=== PATIENT | female | born 1995 | race American Indian/Alaskan Native ===

== ENCOUNTER 2016-06-02 15:24 | Emergency (ER) | payer MEDICAID ==
[2016-06-02 21:30] VITALS: BP 120/76
[2016-06-02] MEDS ORDERED: TYLENOL PO ONE (21:44)
--- NOTE | 2016-06-02 21:47 | Emergency Department Report ---
ED ENT HPI - General Chief complaint: Sore Throat Stated complaint: SORE THROAT/LT EARACHE Time Seen by Provider: 06/02/16 21:43 Source: patient Mode of arrival: Ambulatory Limitations: No Limitations - History of Present Illness Initial comments: 1-year-old female comes in complaining of sore throat. Patient reports that she went to see a provider yesterday at a walk-in clinic they called her today and told her that she was strep negative. He also had her left ear irrigated for cerumen impaction. Complains of ear pain. Patient has not taken any pain medicine secondary to breast feeding. Patient denies any fever or nausea no vomiting. She does have regular follow-up appointments with her PCP which is Dr. Do. complaint: sore throat - Related Data Previous Rx's Medication Instructions Recorded Last Taken Type Docusate Sodium [Colace] 100 mg PO BID PRN #60 capsule 05/11/16 Unknown Rx Ferrous Sulfate [Feosol 325 MG tab] 325 mg PO BID #60 tablet 05/11/16 Unknown Rx Acetaminophen [Tylenol] 500 mg PO Q6HR #30 tablet 06/02/16 Unknown Rx Allergies Allergy/AdvReac Type Severity Reaction Status Date / Time No Known Allergies Allergy Verified 10/21/15 06:40 ED Dental HPI - General Chief complaint: Sore Throat Stated complaint: SORE THROAT/LT EARACHE Time Seen by Provider: 06/02/16 21:43 Source: patient Mode of arrival: Ambulatory Limitations: No Limitations - Related Data Previous Rx's Medication Instructions Recorded Last Taken Type Docusate Sodium [Colace] 100 mg PO BID PRN #60 capsule 05/11/16 Unknown Rx Ferrous Sulfate [Feosol 325 MG tab] 325 mg PO BID #60 tablet 05/11/16 Unknown Rx Acetaminophen [Tylenol] 500 mg PO Q6HR #30 tablet 06/02/16 Unknown Rx Allergies Allergy/AdvReac Type Severity Reaction Status Date / Time No Known Allergies Allergy Verified 10/21/15 06:40 ED Review of Systems ROS: Stated complaint: SORE THROAT/LT EARACHE Other details as noted in HPI Constitutional: denies: chills, fever Eyes: denies: eye pain, eye discharge ENT: throat pain Respiratory: denies: cough Gastrointestinal: denies: abdominal pain, nausea, vomiting, diarrhea ED Past Medical Hx - Past Medical History Hx Hypertension: No Hx Congestive Heart Failure: No Hx Diabetes: No Hx Deep Vein Thrombosis: No Hx Renal Disease: No Hx Sickle Cell Disease: No Hx Seizures: No Hx Asthma: No Hx COPD: No Additional medical history: dehydration - Surgical History Past Surgical History?: No - Social History Smoking Status: Never Smoker Substance Use Type: None - Medications Home Medications: Home Medications Medication Instructions Recorded Confirmed Last Taken Type Docusate Sodium [Colace] 100 mg PO BID PRN #60 capsule 05/11/16 Unknown Rx Ferrous Sulfate [Feosol 325 MG tab] 325 mg PO BID #60 tablet 05/11/16 Unknown Rx Acetaminophen [Tylenol] 500 mg PO Q6HR #30 tablet 06/02/16 Unknown Rx ED Physical Exam - General Limitations: No Limitations General appearance: alert, in no apparent distress - Head Head exam: Present: atraumatic, normocephalic - Eye Eye exam: Present: normal appearance - ENT ENT exam: Present: mucous membranes moist, TM's normal bilaterally - Expanded ENT Exam Expanded Throat exam: Positive: tonsillar erythema, tonsillomegaly, tonsillar exudate - Neck Neck exam: Present: normal inspection, full ROM, lymphadenopathy. Absent: tenderness - Respiratory Respiratory exam: Present: normal lung sounds bilaterally. Absent: respiratory distress - Cardiovascular Cardiovascular Exam: Present: regular rate, normal rhythm ED Course Vital Signs 06/02/16 06/02/16 16:20 21:29 Temperature 98.9 F 98.3 F Pulse Rate 59 L 60 Respiratory 22 18 Rate Blood Pressure 118/73 Blood Pressure 120/76 [Right] O2 Sat by Pulse 100 100 Oximetry ED Medical Decision Making - Medical Decision Making Been evaluated with his provider fast track. Discussed with patient that since her strep test was negative. She just mainly needs to treat her symptoms such as taking Tylenol for fever and pain. Patient verbalizes understanding. Critical care attestation.: If time is entered above; I have spent that time in minutes in the direct care of this critically ill patient, excluding procedure time. ED Disposition Clinical Impression: Sore throat (viral) Disposition: DISCHARGED TO HOME OR SELFCARE Is pt being admited?: No Does the pt Need Aspirin: No Condition: Stable Instructions: Tonsillitis (ED) Additional Instructions: He can take Tylenol for your pain which is safe for breast-feeding moms. That will treat your tonsil pain as well as right ear pain. It is important for you to follow with her primary care provider in 3-5 days. You can gargle with warm salt water every 4 hours as needed. Prescriptions: Acetaminophen [Tylenol] 500 mg PO Q6HR #30 tablet
== END 2016-06-02 22:14 | disposition home or self-care (01) ==
LOC: ED 15:24
DX: J02.8 Acute pharyngitis due to other specified organisms (principal); B97.89 Other viral agents as the cause of diseases classified elsewhere
CPT/HCPCS: 99282

== ENCOUNTER 2017-09-21 21:58 | Emergency (ER) | payer MEDICAID ==
[2017-09-21] MEDS ORDERED: TYLENOL PO ONE (22:56)
[2017-09-21] MEDS ORDERED: TYLENOL ONE (22:56)
[2017-09-21 23:24] LABS: BUN/Creatinine Ratio 18; Blood Urea Nitrogen 11 mg/dL (7-17); Calcium 8.9 mg/dL (8.4-10.2); Hemolysis Index 2
[2017-09-21 23:42] LABS: Basophils % (Auto) 0.3 % (0.0-1.8); Hemoglobin 10.7 gm/dl (10.1-14.3); Lymphocytes # (Auto) 0.7 K/mm3 (1.2-5.4); Lymphocytes % (Auto) 9.8 % (13.4-35.0); Mean Corpuscular HGB Conc 32 % (30-34); Mean Corpuscular Volume 71 fl (79-97); Monocytes % (Auto) 13.7 % (0.0-7.3); Platelet Count 246 K/mm3 (140-440); Red Blood Count 4.82 M/mm3 (3.65-5.03); Red Cell Distribution Width 13.8 % (13.2-15.2)
[2017-09-21 23:45] LABS: Mean Corpuscular Hemoglobin 22 pg (28-32)
[2017-09-22 00:27] LABS: Bacteria,Urine 1+ /HPF (Negative); Bilirubin,Urine NEG (Negative); Blood,Urine NEG (Negative); Color,Urine Yellow (Yellow); Mucus,Urine 1+ /HPF; Protein,Urine <15 mg/dL mg/dL (Negative)
--- NOTE | 2017-09-22 01:43 | Emergency Department Report ---
ED General Adult HPI - General Chief complaint: Pain General Stated complaint: BODYACHE Time Seen by Provider: 09/22/17 01:10 Source: patient, family Mode of arrival: Ambulatory Limitations: No Limitations - History of Present Illness Initial comments: 22F PMH none p/w c/o feeling slightly more tired than usual. Denies nausea vomiting cough chest pain palpitations. Denies dysuria or hematuria or increased urinary frequency but does state that urine slightly more concentrated today. Patient states she has not been drinking enough water lately. States that her sinuses have been slightly congested. Denies any sore throat or earache. Patient is fully lucid awake alert and oriented 3. Nonacute distress. States that she feels fine at the moment that I am speaking with her. Accompanied by boyfriend at bedside. Denies alcohol or drug use. -: This morning Worsens with: none Associated Symptoms: denies other symptoms Treatments Prior to Arrival: none - Related Data Previous Rx's Medication Instructions Recorded Last Taken Type Docusate Sodium [Colace] 100 mg PO BID PRN #60 capsule 05/11/16 Unknown Rx Ferrous Sulfate [Feosol 325 MG tab] 325 mg PO BID #60 tablet 05/11/16 Unknown Rx Acetaminophen [Tylenol] 500 mg PO Q6HR #30 tablet 06/02/16 Unknown Rx Fluticasone [Flonase] 1 spray NS QDAY PRN #1 bottle 09/22/17 Unknown Rx Ibuprofen [Motrin] 600 mg PO Q8H PRN #20 tablet 09/22/17 Unknown Rx Loratadine [Claritin] 10 mg PO DAILY PRN #14 tablet 09/22/17 Unknown Rx Sulfamethoxazole/Trimethoprim 1 each PO BID #14 tablet 09/22/17 Unknown Rx [Bactrim DS TAB] Allergies Allergy/AdvReac Type Severity Reaction Status Date / Time No Known Allergies Allergy Verified 10/21/15 06:40 ED Review of Systems ROS: Stated complaint: BODYACHE Other details as noted in HPI Constitutional: denies: chills, fever Eyes: denies: eye pain, eye discharge, vision change ENT: denies: ear pain, throat pain Respiratory: denies: cough, shortness of breath, wheezing Cardiovascular: denies: chest pain, palpitations Endocrine: no symptoms reported Gastrointestinal: denies: abdominal pain, nausea, diarrhea Genitourinary: denies: urgency, dysuria, discharge Musculoskeletal: denies: back pain, joint swelling, arthralgia Skin: denies: rash, lesions Neurological: denies: headache, weakness, paresthesias Psychiatric: denies: anxiety, depression Hematological/Lymphatic: denies: easy bleeding, easy bruising ED Past Medical Hx - Past Medical History Previous Medical History?: Yes Hx Hypertension: No Hx Congestive Heart Failure: No Hx Diabetes: No Hx Deep Vein Thrombosis: No Hx Renal Disease: No Hx Sickle Cell Disease: No Hx Seizures: No Hx Asthma: No Hx COPD: No Additional medical history: dehydration - Surgical History Past Surgical History?: No - Social History Smoking Status: Former Smoker Substance Use Type: None - Medications Home Medications: Home Medications Medication Instructions Recorded Confirmed Last Taken Type Docusate Sodium [Colace] 100 mg PO BID PRN #60 capsule 05/11/16 Unknown Rx Ferrous Sulfate [Feosol 325 MG tab] 325 mg PO BID #60 tablet 05/11/16 Unknown Rx Acetaminophen [Tylenol] 500 mg PO Q6HR #30 tablet 06/02/16 Unknown Rx Fluticasone [Flonase] 1 spray NS QDAY PRN #1 bottle 09/22/17 Unknown Rx Ibuprofen [Motrin] 600 mg PO Q8H PRN #20 tablet 09/22/17 Unknown Rx Loratadine [Claritin] 10 mg PO DAILY PRN #14 tablet 09/22/17 Unknown Rx Sulfamethoxazole/Trimethoprim 1 each PO BID #14 tablet 09/22/17 Unknown Rx [Bactrim DS TAB] ED Physical Exam - General Limitations: No Limitations General appearance: alert, in no apparent distress - Head Head exam: Present: atraumatic, normocephalic - Eye Eye exam: Present: normal appearance, PERRL, EOMI Pupils: Present: normal accommodation - ENT ENT exam: Present: mucous membranes moist - Neck Neck exam: Present: normal inspection, full ROM - Respiratory Respiratory exam: Present: normal lung sounds bilaterally. Absent: respiratory distress - Cardiovascular Cardiovascular Exam: Present: regular rate, normal rhythm. Absent: systolic murmur, diastolic murmur, rubs, gallop - GI/Abdominal GI/Abdominal exam: Present: soft (abdomen soft nontender nondistended on 4 quadrants. Patient has no CVA tenderness on exam), normal bowel sounds - Extremities Exam Extremities exam: Present: normal inspection - Back Exam Back exam: Present: normal inspection - Neurological Exam Neurological exam: Present: alert, oriented X3 - Psychiatric Psychiatric exam: Present: normal affect, normal mood - Skin Skin exam: Present: warm, dry, intact, normal color. Absent: rash ED Course Vital Signs 09/21/17 09/21/17 09/22/17 22:50 23:04 00:59 Temperature 103.1 F H 100.2 F H Pulse Rate 123 H 99 H Respiratory 18 Rate Blood Pressure 101/59 O2 Sat by Pulse 99 99 Oximetry ED Medical Decision Making - Lab Data Result diagrams: 09/21/17 23:01 09/21/17 23:01 - Medical Decision Making A/P: Urinary tract infection, sinusitis 1-labs unremarkable, patient tolerating by mouth fluid without difficulty reports no nausea or vomiting. I advised patient to drink plenty of fluids and remain well-hydrated 2-UC sent, empiric course of Bactrim [email or web address] [email or web address]_[email or web address]_[email or web address] 3-Motrin when necessary 4- I will sign stable for discharge. I advised patient to return to the ED if she experiences uncontrolled fevers chills nausea vomiting she develops flank pain or abdominal pain. Patient is awake alert and oriented 3. Critical care attestation.: If time is entered above; I have spent that time in minutes in the direct care of this critically ill patient, excluding procedure time. ED Disposition Clinical Impression: Urinary tract infection Qualifiers: Urinary tract infection type: acute cystitis Hematuria presence: without hematuria Qualified Code(s): N30.00 - Acute cystitis without hematuria Sinusitis Qualifiers: Sinusitis location: frontal Chronicity: acute Recurrence: non-recurrent Qualified Code(s): J01.10 - Acute frontal sinusitis, unspecified Disposition: TO HOME OR SELFCARE Is pt being admited?: No Does the pt Need Aspirin: No Condition: Stable Instructions: Sinusitis (ED), Urinary Tract Infection in Women (ED), Dehydration (ED) Prescriptions: Fluticasone [Flonase] 1 spray NS QDAY PRN #1 bottle PRN Reason: Congestion Ibuprofen [Motrin] 600 mg PO Q8H PRN #20 tablet PRN Reason: Pain Loratadine [Claritin] 10 mg PO DAILY PRN #14 tablet PRN Reason: Congestion Sulfamethoxazole/Trimethoprim [Bactrim DS TAB] 1 each PO BID #14 tablet Referrals: SHAW LUI MD [Primary Care Provider] - 3-5 Days [facility] [Outside] - 3-5 Days Forms: Accompanied Note, Work/School Release Form(ED) Time of Disposition: 01:43
[2017-09-22] MEDS ORDERED: BACTRIM DS PO ONE (01:45)
[2017-09-22 02:11] VITALS: BP 107/65
== END 2017-09-22 02:11 | disposition home or self-care (01) ==
LOC: ED 21:58
DX: N39.0 Urinary tract infection, site not specified (principal); J01.90 Acute sinusitis, unspecified; E86.0 Dehydration; Z87.891 Personal history of nicotine dependence
CPT/HCPCS: 36415; 80048; 81001; 84703; 85025; 87086